=== PATIENT | female | born 1995 | race Two or more races ===

== ENCOUNTER 2020-09-12 11:04 | Outpatient (CLI) | payer OTHER | END 2020-09-12 11:21 | disposition home or self-care (01) | LOC: RX STUDY 11:04 | PROVIDERS: ATTEND Obstetrics & Gynecology | DX: N94.89 Other specified conditions associated with female genital organs and menstrual cycle (principal); N93.8 Other specified abnormal uterine and vaginal bleeding ==

== ENCOUNTER 2023-04-21 09:45 | Outpatient (CLI) | payer OTHER | END 2023-04-21 09:50 | disposition home or self-care (01) | LOC: RX STUDY 09:45 | PROVIDERS: ATTEND Obstetrics & Gynecology | DX: N94.9 Unspecified condition associated with female genital organs and menstrual cycle (principal); N93.8 Other specified abnormal uterine and vaginal bleeding ==